=== PATIENT | male | born 1935 | race Caucasian/White ===

== ENCOUNTER → 2017-01-04 | Outpatient (CLI) | payer MEDICARE, OTHER | LOC: KOH-I 08:00 | DX: I71.9 Aortic aneurysm of unspecified site, without rupture (principal); I71.4 Abdominal aortic aneurysm, without rupture | CPT/HCPCS: 93979 ==

== ENCOUNTER → 2021-01-02 | Outpatient (CLI) | payer MEDICARE, OTHER | LOC: KOH-I 12-27 09:30 → US 12-27 09:30 → KOH-I 08:00 | DX: I71.9 Aortic aneurysm of unspecified site, without rupture (principal); I71.4 Abdominal aortic aneurysm, without rupture | CPT/HCPCS: 93979 ==